=== PATIENT | male | born 1990 | race African-American/Black ===

== ENCOUNTER 2018-04-14 11:29 | Emergency (ER) | payer MEDICAID ==
[~2018-04-14] VITALS: Ht 182.9 cm; Wt 70.5 kg
[2018-04-14 11:31] VITALS: BP 114/71
== END 2018-04-14 12:52 | disposition home or self-care (01) ==
LOC: ED 11:51
DX: M79.642 Pain in left hand (principal)
CPT/HCPCS: 29125; 99284